=== PATIENT | male | born 1990 | race Caucasian/White ===

== ENCOUNTER 2017-01-02 12:15 | Inpatient (IN) | payer OTHER ==
--- NOTE | ~2017-01-02 | HP ---
Unit #: [id number] #: [id number] Patient: ROSA ISELA PHELPS [id number] [facility] [address] [place] [address] [id number] MR#: [id number] NAME: ROSA ISELA PHELPS ROOM: [facility] Age: 26 Sex: M Admission Date: 01/02/2017 : 1990 Attending Physician: Jose Angel Kwon M.D. Admitting Physician: Jose Angel Kwon M.D. Primary Care Physician: Alan Marie M.D. HISTORY AND PHYSICAL HISTORY OF PRESENT ILLNESS Rosa Isela is a 26-year-old male who is admitted to [address] [place] [address] on 01/02/2017. He was discharged on 01/03/2017 prior to H & P being completed. Dictated by... Mayito Saha/ina TD: 01/03/2017 23:08 JOB #: [id number] HISTORY AND PHYSICAL Page 1 of 1 X KIRSTEN SAMUELS APRN HISTORY AND PHYSICAL
--- NOTE | ~2017-01-02 | DS ---
Unit #: [id number] #: [id number] Patient: ROSA ISELA PHELPS [id number] [facility] [address] [place] [address] [id number] MR#: [id number] NAME: ROSA ISELA PHELPS ROOM: [facility] Age: 26 Sex: M Admission Date: 01/02/2017 : 1990 Discharge Date: 01/03/2017 Attending Physician: Jose Angel Kwon M.D. Primary Care Physician: Alan Marie M.D. DISCHARGE SUMMARY REASON FOR ADMISSION Rosa Isela is a 26-year-old man with an addiction to alprazolam. He reported over using this medication yesterday, initially reporting it as a suicide attempt, but then claiming that it was done just for recreational use and it "helps me to stop sweating." He came to our hospital at the behest of his mother, where he was admitted for detox. DIAGNOSTIC STUDIES LABORATORY RESULTS: Please see hospital chart. HOSPITAL COURSE The patient was admitted and placed on the benzodiazepine detox protocol and suicide precautions. The morning of my initial assessment, the patient denied suicidal ideation, intent, or plan and had an irritable, but not depressed mood and affect. He stated that he was "tired of messing around" with other psychiatric medications and apparently shows to simply discontinue Xanax, stating that he had "willpower" to do so when he wanted to. I confronted the rather unrealistic expectation, noting that he had multiple opportunities to discontinue this medication and multiple motivations to do so without success. He shrugged off these objections, stating that he "needed to get back to work" and "didn't belong with these people." After further assessment, the patient was able to give a reliable contract for safety against self-harm, although I have a feeling that his insight is very superficial and that he will have much more difficulty then he believes maintaining sobriety. Despite this, the patient will have his right to discharge at his request. DISCHARGE DIAGNOSES AXIS I: Benzodiazepine dependence, F15.230. AXIS II: No diagnosis. AXIS III: Benzodiazepine withdrawal. AXIS IV: AXIS V: DISCHARGE INSTRUCTIONS Follow up with CD programing of the patient's choice. He will be contacted by the unit director of social work regarding options. DISCHARGE MEDICATIONS None. Unit #: [id number] #: [id number] Patient: ROSA ISELA PHELPS CONDITION AT DISCHARGE Fair. PROGNOSIS Fair. DIET AND ACTIVITY Ad nina. Dictated by... Agueda Jackson/jessenia TD: 01/03/2017 13:40 JOB #: [id number] DISCHARGE SUMMARY Page 1 of 1 X Jose Angel Kwon MD X DISCHARGE SUMMARY
--- NOTE | ~2017-01-02 | PA ---
Unit #: [id number] #: [id number] Patient: ROSA ISELA BETANCOURT [id number] [facility] [address] [place] [address] [id number] MR#: [id number] NAME: ROSA ISELA BETANCOURT ROOM: [facility] Age: 26 Sex: M Admission Date: 01/02/2017 : 1990 Date of Assessment: 01/03/2017 Attending Physician: Jose Angel Kwon M.D. Admitting Physician: Jose Angel Kwon M.D. Primary Care Physician: Alan Marie M.D. PSYCHIATRIC ASSESSMENT DATE OF SERVICE 01/03/2017. INFORMANTS The patient, reliable; OLOP, reliable. CHIEF COMPLAINT Benzodiazepine abuse. HISTORY OF PRESENT ILLNESS Rosa Isela Betancourt is a 26-year-old man who reports he has a history of using lots of Xanax and says "I need it, so I don't sweat." Family reported that he took a large amount of this medication and in 11/2016, he was admitted at [facility] for overdosing on Xanax. He says that he has extreme anxiety and is "not getting any help from these places," due to the unwillingness of further providers provide Xanax which he now obtained through both prescription and off the streets. He was anxious in the emergency room, but denied any current suicidal ideation or intent to take an overdose. He initially reported over the emergency room, but told me that he was using just for social purposes. He was admitted at his request for stabilization and detox. PAST PSYCHIATRIC HISTORY One previous admission to [facility] for detox from benzodiazepines. He says he has taken other medications and "nothing else ever worked." FAMILY PSYCHIATRIC HISTORY There is a family history of alcohol dependence upon males in his family. SOCIAL HISTORY The patient is a single heterosexual man who has a current girlfriend. He is a high school graduate with some college and is currently working in sales. He currently lives with his parents and has some financial stress. PAST MEDICAL HISTORY The patient has a history of some hearing loss following an injury in young childhood as well as several broken bones. MEDICATIONS None currently. ALLERGIES No known medication allergies. Unit #: [id number] #: [id number] Patient: ROSA ISELA BETANCOURT SUBSTANCE USE HISTORY The patient denies use of any abusive substance outside of benzodiazepine. He drinks and smokes alcohol occasionally. MENTAL STATUS EXAMINATION The patient presented as a neatly dressed and groomed man who appeared his stated age. He was alert and cooperative with the examination. His speech was spontaneous and easily understood. His musculoskeletal examination was calm. His mood was mildly irritable with a congruent affect. He was alert and fully oriented. His memory and concentration were fair to good. His thought processes were goal directed with no active psychosis. He adamantly denied suicidal ideation, intent, or plan. He disliked the treatment at [facility] and did not want to continue inpatient treatment. Insight and judgment were fair. Fund of knowledge and abstraction were intact. ASSETS AND LIABILITIES The patient is youthful and knows local resources. Liabilities include limited insight, ongoing drug use. ADMITTING DIAGNOSES AXIS I: Benzodiazepine abuse with withdrawal, F15.230. AXIS II: Diagnosis deferred. AXIS III: Benzodiazepine withdrawal. AXIS IV: AXIS V: PSYCHIATRIC PLAN The patient was admitted and placed on the benzodiazepine detox protocol. In the morning of my initial assessment, he adamantly stated he did not wish to stay at the hospital and contracted for safety in the outpatient setting without further due. He declined any initiation of antidepressant treatment stating that he would "just quit using and be fine." I confronted the rather unrealistic expectations that the patient has, reminding him that he has a history of detox issues as well as a history of over using Xanax and then his assertion that he will "just not use it anymore," is an unrealistic and unreliable treatment plan. Despite this, the patient continued to demand discharge and as he contracted for safety and lacked criteria for involuntary hospitalization, his discharge was ordered. Dictated by... Jose Angel Kwon M.D. KERI/jessenia TD: 01/03/2017 16:30 JOB #: [id number] Unit #: [id number] #: [id number] Patient: ROSA ISELA BETANCOURT PSYCHIATRIC ASSESSMENT Page 1 of 1 X Jose Angel Kwon MD X PSYCHIATRIC ASSESSMENT
== END 2017-01-03 15:15 | disposition home or self-care (01) | DRG 897 ==
LOC: P2S 12:15
PROC: HZ2ZZZZ Detoxification Services for Substance Abuse Treatment (ICD-10-PCS; principal; 2017-01-02)
DX: F13.239 Sedative, hypnotic or anxiolytic dependence with withdrawal, unspecified (principal)